=== PATIENT | female | born 2000 | race Asian ===

== ENCOUNTER 2021-01-24 21:54 | Outpatient (CLI) | payer OTHER | END 2021-01-24 21:55 | disposition critical access hospital (66) | LOC: EMS 21:54 | DX: S06.9X9A Unspecified intracranial injury with loss of consciousness of unspecified duration, initial encounter (principal); S00.83XA Contusion of other part of head, initial encounter; R42 Dizziness and giddiness; H53.8 Other visual disturbances; R11.0 Nausea; Y04.2XXA Assault by strike against or bumped into by another person, initial encounter; Y92.009 Unspecified place in unspecified non-institutional (private) residence as the place of occurrence of the external cause | CPT/HCPCS: A0425; A0429 ==

== ENCOUNTER 2021-01-24 22:11 | Emergency (ER) | payer OTHER ==
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
[2021-01-25] MEDS ORDERED: KETOROLAC 30 MG/ML VIAL IVP STA (02:04)
[2021-01-25] MEDS ORDERED: ONDANSETRON ODT 4 MG TABLET TL STA (02:04)
[2021-01-25 02:43] VITALS: BP 132/72
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
== END 2021-01-25 02:41 | disposition home or self-care (01) ==
LOC: ED 22:11
DX: S06.0X1A Concussion with loss of consciousness of 30 minutes or less, initial encounter (principal); S16.1XXA Strain of muscle, fascia and tendon at neck level, initial encounter; S20.212A Contusion of left front wall of thorax, initial encounter; Y09 Assault by unspecified means
CPT/HCPCS: 70450; 70486; 71046; 72125; 96374; 99284; Q0162